=== PATIENT | female | born 1950 | race Caucasian/White ===

== ENCOUNTER 2017-04-30 17:00 | Inpatient (IN) | payer OTHER, BC ==
--- NOTE | 2017-04-30 17:26 | PDOC ---
History of Present Illness - General History Source: Patient Exam Limitations: No Limitations - History of Present Illness Initial Comments: 04/30/17 18:02 The patient is a year old female, with a significant past medical history of Afib, anxiety, HTN, thyroid disease, depression, breast cancer, and kidney cancer, who presents to the emergency department with, one month of shortness of breath, and a cough. As per patient she developed a cough a month ago and began to have significant shortness of breath. She reports seeing her PCP Dr. Curtis this morning when she had mild pressure to her chest which is chronic in nature since her first Afib attack. The patient reports her PCP advised her to come to the ED because she was tachycardic for further evaluation. She denies recent fevers, chills, headache or dizziness. She denies recent nausea, vomit, diarrhea or constipation. She denies recent dysuria, frequency, urgency or hematuria. Past surgical history: None reported. Social history: Nonsmoker. Denies EtOH use and recreational drug use. Primary Care Physician: Dr. Curtis <Remy Gonzalez - Last Filed: 04/30/17 18:38> <Flori Obrien - Last Filed: 04/30/17 18:54> <Gill Varela - Last Filed: 05/01/17 04:30> - General Chief Complaint: Irregular Heart Beat Stated Complaint: ATRIAL FIBRILLATION Time Seen by Provider: 04/30/17 17:10 Past History <Remy Gonzalez - Last Filed: 04/30/17 18:38> - Past Medical History Anemia: No Asthma: No Cancer: No Cardiac Disorders: No CVA: No COPD: No CHF: No Dementia: No Diabetes: No GI Disorders: No Disorders: No HTN: Yes Hypercholesterolemia: No Liver Disease: No Seizures: No Thyroid Disease: No - Surgical History Abdominal Surgery: Yes (LAP. BAND 2002) Appendectomy: No Cardiac Surgery: No Cholecystectomy: No Lung Surgery: No Neurologic Surgery: Yes (ANTERIOR CERVICAL DISCCECTOMY) Orthopedic Surgery: Yes (ANTERIOR CERVICAL DISCECTOMY 2000) - Immunization History Immunization Up to Date: No - Suicide/Smoking/Psychosocial Hx Smoking Status: No Smoking History: Former smoker Have you smoked in the past 12 months: No Number of Cigarettes Smoked Daily: 20 If you are a former smoker, when did you quit?: 1990 'Breaking Loose' booklet given: 06/06/15 Hx Alcohol Use: No Drug/Substance Use Hx: No Substance Use Type: None Hx Substance Use Treatment: No <Flori Obrien - Last Filed: 04/30/17 18:54> <Gill Varela Kin - Last Filed: 05/01/17 04:30> - Past Medical History Allergies/Adverse Reactions: Allergies Allergy/AdvReac Type Severity Reaction Status Date / Time prochlorperazine edisylate AdvReac Verified 06/05/15 18:21 [From Compazine] prochlorperazine maleate AdvReac Verified 06/05/15 18:21 [From Compazine] Home Medications: Ambulatory Orders Zolpidem Tartrate [Ambien] 10 mg PO HS 05/09/12 Cholecalciferol (Vitamin D3) [Vitamin D3] 4,000 unit PO DAILY capsule 05/06/13 Metoprolol Succinate 50 mg PO AM 01/11/16 Apixaban [Eliquis] 5 mg PO BID 04/30/17 Duloxetine HCl [Cymbalta] 30 mg PO DAILY 04/30/17 Escitalopram Oxalate [Lexapro -] 10 mg PO DAILY 04/30/17 Letrozole [Femara] 2.5 mg PO DAILY 04/30/17 Review of Systems - Review of Systems Able to Perform ROS?: Yes Comments:: 04/30/17 18:02 GENERAL/CONSTITUTIONAL: No fever or chills. No weakness. HEAD, EYES, EARS, NOSE AND THROAT: No change in vision. No ear pain or discharge. No sore throat. CARDIOVASCULAR: +SOB. +Tachycardia. +Chest pressure (chronic). RESPIRATORY: +Cough. No wheezing, or hemoptysis. GASTROINTESTINAL: No nausea, vomiting, diarrhea or constipation. GENITOURINARY: No dysuria, frequency, or change in urination. MUSCULOSKELETAL: No joint or muscle swelling or pain. No neck or back pain. SKIN: No rash NEUROLOGIC: No headache, vertigo, loss of consciousness, or change in strength/ sensation. ENDOCRINE: No increased thirst. No abnormal weight change. HEMATOLOGIC/LYMPHATIC: No anemia, easy bleeding, or history of blood clots. ALLERGIC/IMMUNOLOGIC: No hives or skin allergy. All Other Systems: Reviewed and Negative <Remy Gonzalez - Last Filed: 04/30/17 18:38> *Physical Exam - Vital Signs Last Vital Signs Temp Pulse Resp BP Pulse Ox 97.9 F 133 H 18 95/76 97 04/30/17 17:06 04/30/17 17:50 04/30/17 17:50 04/30/17 17:50 04/30/17 17:50 - Physical Exam Comments: 04/30/17 18:38 GENERAL: Awake, alert, and fully oriented, in no acute distress HEAD: No signs of trauma EYES: PERRLA, EOMI, sclera anicteric, conjunctiva clear ENT: Auricles normal inspection, hearing grossly normal, nares patent, oropharynx clear without exudates. Moist mucosa NECK: Normal ROM, supple, no lymphadenopathy, JVD, or masses LUNGS: Breath sounds equal, clear to auscultation bilaterally. No wheezes, and no crackles HEART: +Tachycardia. Regular rhythm, normal S1 and S2, no murmurs, rubs or gallops ABDOMEN: Soft, nontender, normoactive bowel sounds. No guarding, no rebound. No masses EXTREMITIES: Normal range of motion, no edema. No clubbing or cyanosis. No cords, erythema, or tenderness NEUROLOGICAL: Cranial nerves II through XII grossly intact. Normal speech, normal gait SKIN: Warm, Dry, normal turgor, no rashes or lesions noted. <Remy Gonzalez - Last Filed: 04/30/17 18:38> - Vital Signs Last Vital Signs Temp Pulse Resp BP Pulse Ox 97.9 F 70 15 106/67 95 04/30/17 17:06 05/01/17 00:01 04/30/17 21:15 05/01/17 00:01 05/01/17 00:01 <Gill Varela - Last Filed: 05/01/17 04:30> ED Treatment Course - LABORATORY CBC & Chemistry Diagram: 04/30/17 17:40 04/30/17 17:40 - Medications Given in the ED: ED Medications Discontinued Medications Generic Name Dose Route Start Last Admin Trade Name Freq PRN Reason Stop Dose Admin Metoprolol Tartrate 5 mg 04/30/17 17:27 04/30/17 17:45 Lopressor Injection - IVPUSH 03/26/18 17:28 5 mg ONCE ONE Administration <Remy Gonzalez - Last Filed: 04/30/17 18:38> - LABORATORY CBC & Chemistry Diagram: 04/30/17 17:40 04/30/17 17:40 <Flori Obrien - Last Filed: 04/30/17 18:54> - LABORATORY CBC & Chemistry Diagram: 04/30/17 17:40 04/30/17 17:40 - ADDITIONAL ORDERS Additional order review: Laboratory Results 04/30/17 04/30/17 17:40 17:40 Sodium 134 L Potassium 4.4 Chloride 99 Carbon Dioxide 28 Anion Gap 7 L BUN 20 H Creatinine 1.1 D Creat Clearance w eGFR 49.54 Random Glucose 100 Calcium 8.8 Total Bilirubin 0.7 D AST 16 ALT 13 Alkaline Phosphatase 84 Creatine Kinase 65 Troponin I < 0.03 Total Protein 6.7 Albumin 3.9 04/30/17 17:40 RBC 4.44 MCV 85.1 MCHC 33.3 RDW 13.3 MPV 10.4 Neutrophils % 67.4 Lymphocytes % 19.7 Monocytes % 7.8 Eosinophils % 4.4 Basophils % 0.7 - Medications Given in the ED: ED Medications Discontinued Medications Generic Name Dose Route Start Last Admin Trade Name Freq PRN Reason Stop Dose Admin Diltiazem HCl 10 mg 04/30/17 20:58 04/30/17 21:35 Cardizem Injection - IVPUSH 04/30/17 20:59 10 mg ONCE ONE Administration Metoprolol Tartrate 5 mg 04/30/17 17:27 04/30/17 17:45 Lopressor Injection - IVPUSH 04/30/17 17:28 5 mg ONCE ONE Administration Sodium Chloride 1,000 ml 04/30/17 19:07 04/30/17 19:00 Normal Saline - IV 04/30/17 19:08 1,000 ml ONCE ONE Administration <Gill Varela - Last Filed: 05/01/17 04:30> Medical Decision Making - Medical Decision Making 04/30/17 18:54 Pt presents to the ED complaining of <Flori Obrien - Last Filed: 04/30/17 18:54> *DC/Admit/Observation/Transfer - Attestations Scribe Attestion: 04/30/17 18:02 Documentation prepared by Remy Gonzalez, acting as medical transcription radiology for Flori Obrien MD. <Remy Gonzalez - Last Filed: 04/30/17 18:38> <Flori Obrien - Last Filed: 04/30/17 18:54> <Gill Varela - Last Filed: 05/01/17 04:30> Diagnosis at time of Disposition: Atrial fibrillation with RVR - Discharge Dispostion Condition at time of disposition: Stable
[2017-04-30] MEDS ORDERED: METOPROLOL TARTRATE 5 MG/5 ML VIAL IVPUSH ONE (17:27)
[2017-04-30] MEDS ORDERED: METOPROLOL TARTRATE 5 MG/5 ML VIAL ONE (17:41)
[2017-04-30 18:07] LABS: BASO % 0.7 % (0-2.0); EOS % 4.4 % (0-4.5); HEMATOCRIT 37.8 % (32.4-45.2); HEMOGLOBIN 12.6 GM/dl (10.7-15.3); LYMPH % 19.7 % (8-40); MCH 28.4 pg (25.7-33.7); MCHC 33.3 g/dl (32.0-36.0); MEAN CELL VOLUME 85.1 fl (80-96); MEAN PLT VOLUME 10.4 fl (7.5-11.1); MONO % 7.8 % (3.8-10.2); NEUT % 67.4 % (42.8-82.8); PLATELET COUNT 162 K/MM3 (134-434); RBC 4.44 M/mm3 (3.60-5.2); RDW 13.3 % (11.6-15.6); WHITE BLOOD COUNT 7.3 K/mm3 (4.0-10.8)
[2017-04-30 18:13] LABS: ALBUMIN 3.9 g/dl (3.5-5.0); ALK PHOS 84 U/L (32-92); ANION GAP 7 (8-16); BILIRUBIN,TOTAL 0.7 mg/dl (0.2-1.0); BLOOD UREA NITROGEN 20 mg/dl (7-18); CALCIUM 8.8 mg/dl (8.4-10.2); CHLORIDE 99 mmol/L (98-107); CO2 28 mmol/L (22-28); CREATININE 1.1 mg/dl (0.6-1.3); GLUCOSE,RANDOM 100 mg/dl (74-106); POTASSIUM 4.4 mmol/L (3.5-5.1); SGOT/AST 16 U/L (10-42); SGPT/ALT 13 U/L (10-40); SODIUM 134 mmol/L (136-145); TOT PROT 6.7 g/dl (6.4-8.3)
[2017-04-30] MEDS ORDERED: SODIUM CHLORIDE 0.9% 500 ML INFUS.BAG IV ONE (19:07)
[2017-04-30] MEDS ORDERED: dilTIAZem HCL 50 MG/10 ML - 10 ML VIAL IVPUSH ONE (20:58)
--- NOTE | 2017-04-30 20:58 | PDOC ---
*Physical Exam - Vital Signs Last Vital Signs Temp Pulse Resp BP Pulse Ox 97.9 F 121 H 16 99/80 100 04/30/17 17:06 04/30/17 19:56 04/30/17 19:56 04/30/17 19:56 04/30/17 19:56 ED Treatment Course - LABORATORY CBC & Chemistry Diagram: 04/30/17 17:40 04/30/17 17:40 - ADDITIONAL ORDERS Additional order review: Laboratory Results 04/30/17 04/30/17 17:40 17:40 Sodium 134 L Potassium 4.4 Chloride 99 Carbon Dioxide 28 Anion Gap 7 L BUN 20 H Creatinine 1.1 D Creat Clearance w eGFR 49.54 Random Glucose 100 Calcium 8.8 Total Bilirubin 0.7 D AST 16 ALT 13 Alkaline Phosphatase 84 Creatine Kinase 65 Troponin I < 0.03 Total Protein 6.7 Albumin 3.9 04/30/17 17:40 RBC 4.44 MCV 85.1 MCHC 33.3 RDW 13.3 MPV 10.4 Neutrophils % 67.4 Lymphocytes % 19.7 Monocytes % 7.8 Eosinophils % 4.4 Basophils % 0.7 - Medications Given in the ED: ED Medications Discontinued Medications Generic Name Dose Route Start Last Admin Trade Name Freq PRN Reason Stop Dose Admin Metoprolol Tartrate 5 mg 04/30/17 17:27 04/30/17 17:45 Lopressor Injection - IVPUSH 04/30/17 17:28 5 mg ONCE ONE Administration Sodium Chloride 1,000 ml 04/30/17 19:07 04/30/17 19:00 Normal Saline - IV 04/30/17 19:08 1,000 ml ONCE ONE Administration Progress Note - Progress Note Progress Note: Care of this patient received from Patient received 1 dose of IV metoprolol 5 mg which caused brief episode of hypotension but had no significant effect on heart rate. Diltiazem 10 mg IV given at approximately 9:45 PM Medical Decision Making - Medical Decision Making 04/30/17 23:40 Approximately 2 hours after administration of 10 mg diltiazem IV, patient's heart rhythm is persistent atrial fibrillation with heart rate in the 115 to 125 range. Additional dose of 10 mg diltiazem will be given now. Patient has no additional chest pain/pressure, shortness of breath or other new symptoms 05/01/17 00:[address] Nolasco; patient will be admitted to telemetry, [facility] . No further doses of diltiazem IV will be given now. Patient will receive diltiazem PO as needed 05/01/17 00:19 Patient's dose of Eliquis 5 mg to be given now along with diltiazem 30 mg by mouth. *DC/Admit/Observation/Transfer Diagnosis at time of Disposition: Atrial fibrillation with RVR - Discharge Dispostion Condition at time of disposition: Stable Admit: Yes - Referrals Referrals: Humphrey Curtis MD [Primary Care Provider] - - Patient Instructions - Post Discharge Activity
[2017-04-30] MEDS ORDERED: dilTIAZem HCL 50 MG/10 ML - 10 ML VIAL ONE (21:35)
[2017-05-01] MEDS ORDERED: dilTIAZem HCL 30 MG TABLET (FP) PO ONE (00:14)
[2017-05-01] MEDS ORDERED: dilTIAZem HCL 30 MG TABLET (FP) ONE (00:16)
[2017-05-01] MEDS ORDERED: APIXABAN 5 MG TABLET PO ONE (00:30)
[2017-05-01 02:07] VITALS: BMI 34.9
[2017-05-01] MEDS: LEVOTHYROXINE NA 125 MCG TABLET (FP) PO SCH (06:36)
--- NOTE | 2017-05-01 07:59 | HP ---
CHIEF COMPLAINT: shortness of breath and chest pressure PCP: Dr Curtis oncologist: Dr Castillo HISTORY OF PRESENT ILLNESS: Patient is a 67 y/o female with a past medical history of breast cancer (remission), afib, hypertension, and hypothyroidism. patient reports one month of shortness of breath and bilateral lower extremity swelling. In addition, she reports non-radiating chest pressure within the past 24 hours that worsens upon exertion. She sought evaluation with her primary care physician, Dr Curtis and was found to be in afib with rvr. As a result, she was referred to the emergency department for further evaluation. ER course was notable for: (1) ekg afib with rvr (2) troponin 0.03 (3) chest xray no acute pathology Recent Travel: none PAST MEDICAL HISTORY: see hpi PAST SURGICAL HISTORY: lap band, anterior cervical disectomy Social History: retired, resides at home with partner Smoking: none Alcohol: none Drugs: none Family History: non- contributory to this admission Allergies prochlorperazine edisylate [From Compazine] Adverse Reaction (Verified 06/05/15 18:21) DYSTONIC REACTION prochlorperazine maleate [From Compazine] Adverse Reaction (Verified 06/05/15 18 :21) DYSTONIC REACTION HOME MEDICATIONS: Home Medications Medication Instructions Recorded Zolpidem Tartrate [Ambien] 10 mg PO HS 05/09/12 Cholecalciferol (Vitamin D3) 4,000 unit PO DAILY capsule 05/06/13 [Vitamin D3] Metoprolol Succinate 50 mg PO AM 01/11/16 Apixaban [Eliquis] 5 mg PO BID 04/30/17 Duloxetine HCl [Cymbalta] 30 mg PO DAILY 04/30/17 Escitalopram Oxalate [Lexapro -] 10 mg PO DAILY 04/30/17 Letrozole [Femara] 2.5 mg PO DAILY 04/30/17 REVIEW OF SYSTEMS CONSTITUTIONAL: present: generalized weakness, malaise Absent: fever, chills, diaphoresis, loss of appetite, weight change HEENT: Absent: rhinorrhea, nasal congestion, throat pain, throat swelling, difficulty swallowing, mouth swelling, ear pain, eye pain, visual changes CARDIOVASCULAR: present: chest pain, peripheral edema Absent: syncope, palpitations, irregular heart rate, lightheadedness RESPIRATORY: Absent: cough, shortness of breath, dyspnea with exertion, orthopnea, wheezing, stridor, hemoptysis GASTROINTESTINAL: Absent: abdominal pain, abdominal distension, nausea, vomiting, diarrhea, constipation, melena, hematochezia GENITOURINARY: Absent: dysuria, frequency, urgency, hesitancy, hematuria, flank pain, genital pain MUSCULOSKELETAL: Absent: myalgia, arthralgia, joint swelling, back pain, neck pain SKIN: Absent: rash, itching, pallor HEMATOLOGIC/IMMUNOLOGIC: Absent: easy bleeding, easy bruising, lymphadenopathy, frequent infections ENDOCRINE: Absent: unexplained weight gain, unexplained weight loss, heat intolerance, cold intolerance NEUROLOGIC: Absent: headache, focal weakness or paresthesias, dizziness, unsteady gait, seizure, mental status changes, bladder or bowel incontinence PSYCHIATRIC: Absent: anxiety, depression, suicidal or homicidal ideation, hallucinations. PHYSICAL EXAMINATION Vital Signs - 24 hr 04/30/17 04/30/17 04/30/17 17:00 17:06 17:45 Temperature 97.9 F Pulse Rate 120 H Pulse Rate [ 124 H Apical] Respiratory 18 14 Rate Blood Pressure 110/66 98/72 Blood Pressure 94/82 [Right Arm] O2 Sat by Pulse 96 98 Oximetry (%) 04/30/17 04/30/17 04/30/17 17:50 19:56 20:30 Temperature Pulse Rate Pulse Rate [ 133 H 121 H 120 H Apical] Respiratory 18 16 16 Rate Blood Pressure Blood Pressure 95/76 99/80 114/78 [Right Arm] O2 Sat by Pulse 97 100 96 Oximetry (%) 04/30/17 05/01/17 05/01/17 21:15 00:01 00:04 Temperature Pulse Rate 72 Pulse Rate [ 128 H 70 Apical] Respiratory 15 20 Rate Blood Pressure Blood Pressure 109/85 106/67 [Right Arm] O2 Sat by Pulse 97 95 Oximetry (%) 05/01/17 05/01/17 05/01/17 00:36 00:43 01:00 Temperature 97.6 F Pulse Rate 132 H Pulse Rate [ 114 H Apical] Respiratory 18 20 20 Rate Blood Pressure 109/72 Blood Pressure 100/71 [Right Arm] O2 Sat by Pulse 98 98 Oximetry (%) 05/01/17 05:00 Temperature 97.8 F Pulse Rate 99 H Pulse Rate [ Apical] Respiratory 20 Rate Blood Pressure 91/54 Blood Pressure [Right Arm] O2 Sat by Pulse 95 Oximetry (%) GENERAL: Awake, alert, and fully oriented, in no acute distress. HEAD: Normal with no signs of trauma. EYES: Pupils equal, round and reactive to light, extraocular movements intact, sclera anicteric, conjunctiva clear. No lid lag. EARS, NOSE, THROAT: Ears normal, nares patent, oropharynx clear without exudates. Moist mucous membranes. NECK: Normal range of motion, supple without lymphadenopathy, + JVD, or masses. LUNGS: Breath sounds equal, clear to auscultation bilaterally to apexes, bilateral rales to bases, RR 24, No wheezes and No accessory muscle use. HEART: Regular rate and rhythm, normal S1 and S2 without murmur, rub or gallop. ABDOMEN: Soft, nontender, not distended, normoactive bowel sounds, no guarding, no rebound, no masses. No hepatomegaly or splenomegaly. MUSCULOSKELETAL: Normal range of motion at all joints. No bony deformities or tenderness. No CVA tenderness. UPPER EXTREMITIES: 2+ pulses, warm, well-perfused. No cyanosis. No clubbing. + 1 lower extremity edema bilaterally. LOWER EXTREMITIES: 2+ pulses, warm, well-perfused. No calf tenderness. No peripheral edema. NEUROLOGICAL: Cranial nerves II-XII intact. Normal speech. Normal gait. PSYCHIATRIC: Cooperative. Good eye contact. Appropriate mood and affect. SKIN: Warm, dry, normal turgor, no rashes or lesions noted, normal capillary refill. Laboratory Results - last 24 hr 04/30/17 04/30/17 04/30/17 17:40 17:40 17:40 WBC 7.3 RBC 4.44 Hgb 12.6 Hct 37.8 MCV 85.1 MCH 28.4 MCHC 33.3 RDW 13.3 Plt Count 162 MPV 10.4 Neutrophils % 67.4 Lymphocytes % 19.7 Monocytes % 7.8 Eosinophils % 4.4 Basophils % 0.7 Sodium 134 L Potassium 4.4 Chloride 99 Carbon Dioxide 28 Anion Gap 7 L BUN 20 H Creatinine 1.1 D Creat Clearance w eGFR 49.54 Random Glucose 100 Calcium 8.8 Total Bilirubin 0.7 D AST 16 ALT 13 Alkaline Phosphatase 84 Creatine Kinase 65 Troponin I < 0.03 Total Protein 6.7 Albumin 3.9 TSH 05/01/17 00:30 WBC RBC Hgb Hct MCV MCH MCHC RDW Plt Count MPV Neutrophils % Lymphocytes % Monocytes % Eosinophils % Basophils % Sodium Potassium Chloride Carbon Dioxide Anion Gap BUN Creatinine Creat Clearance w eGFR Random Glucose Calcium Total Bilirubin AST ALT Alkaline Phosphatase Creatine Kinase 57 Troponin I < 0.02 Total Protein Albumin TSH 0.38 ASSESSMENT/PLAN: 1) cardiovascular afib w/rvr - ventricular rate 130-140's on cardiac monitoring, fluid overload noted on exam , lopressor 5mg IV x 1 and lasix 40mg IV x 1, rate remains elevated, cardizem 5mg iv q4h prn, start cardizem 30mg q6h - stat echo ordered - continue eliquis - appreciate cardiology input (Dr Hood) acute congestive heart failure - pending bnp, lasix 40mg iv x1, strict i/o and daily weight hypertension - b/p at goal, continue loosartan with strict b/p monitoring 2) endo hypothyroidism - tsh 0.38, continue home dose levothyroxine 3) heme/onc breast/renal CA - continue femara - outpatient follow up (Dr Castillo) f/e/n -low sodium diet - replete electrolytes ppx - eliquis - scd - oob dispo: pt requires inpatient telemetry admission Visit type - Emergency Visit Emergency Visit: Yes ED Registration Date: 05/01/17 Care time: The patient presented to the Emergency Department on the above date and was hospitalized for further evaluation of their emergent condition. - New Patient This patient is new to me today: Yes Date on this admission: 05/01/17 - Critical Care Critical Care patient: Yes Total Critical Care Time (in minutes): 45 Critical Care Statement: The care of this patient involved high complexity decision making to prevent further life threatening deterioration of the patient 's condition and/or to evaluate & treat vital organ system(s) failure or risk of failure. Hospitalist Screening - Colonoscopy Questionnaire Colonoscopy Questionnaire: Colonoscopy Questionnaire - Patient: 50 - 75 years old and never had a screening colonoscopy: No History of colon or rectal polyps, or CA: No History of IBD, Crohn's disease or UC: No History of abdominal radiation therapy as a child: No - Relative: 1 with colon or rectal CA, or polyps at age 60 or younger: No Colon or rectal CA diagnosed at age 45 or younger: No Multiple relatives with colon or rectal CA: No - Outcome: Screening Result: Negative Screen
[2017-05-01] MEDS ORDERED: METOPROLOL TARTRATE 5 MG/5 ML VIAL IVPUSH ONE (08:07)
[2017-05-01] MEDS ORDERED: FUROSEMIDE 40 MG/4 ML INJECTABLE VIAL IVPUSH ONE (08:30)
[2017-05-01 09:02] LABS: BASO % 0.8 % (0-2.0); EOS % 4.4 % (0-4.5); HEMATOCRIT 35.7 % (32.4-45.2); HEMOGLOBIN 11.9 GM/dl (10.7-15.3); LYMPH % 22.7 % (8-40); MCH 28.6 pg (25.7-33.7); MCHC 33.4 g/dl (32.0-36.0); MEAN CELL VOLUME 85.8 fl (80-96); MEAN PLT VOLUME 10.8 fl (7.5-11.1); MONO % 8.4 % (3.8-10.2); NEUT % 63.7 % (42.8-82.8); PLATELET COUNT 167 K/MM3 (134-434); RBC 4.16 M/mm3 (3.60-5.2); RDW 13.4 % (11.6-15.6); WHITE BLOOD COUNT 6.2 K/mm3 (4.0-10.8)
[2017-05-01 09:05] LABS: ANION GAP 3 (8-16); BLOOD UREA NITROGEN 22 mg/dl (7-18); CALCIUM 7.8 mg/dl (8.4-10.2); CHLORIDE 103 mmol/L (98-107); CO2 28 mmol/L (22-28); GLUCOSE,RANDOM 91 mg/dl (74-106); MAGNESIUM 1.8 mg/dL (1.8-2.4); PHOSPHOROUS 4.2 mg/dl (2.5-4.6); POTASSIUM 4.2 mmol/L (3.5-5.1); SODIUM 134 mmol/L (136-145)
[2017-05-01] MEDS ORDERED: MAGNESIUM SULF 50% (8.12 MEQ/2 ML-1 GM VIAL) IVPB ONE (09:50)
[2017-05-01] MEDS ORDERED: PATIENT'S OWN MEDICATION (NON-FORMULARY) (Irbesartan/Hydrochlorothiazide [Avalide 300-12.5 PO SCH (10:00)
[2017-05-01] MEDS ORDERED: LOSARTAN POTASSIUM 50 MG TABLET (FP) PO SCH (10:00)
[2017-05-01] MEDS ORDERED: HYDROCHLOROTHIAZIDE 12.5 MG CAPSULE (FP) PO SCH (10:00)
[2017-05-01] MEDS ORDERED: MAGNESIUM SULFATE 1 GM in SODIUM CHLORIDE 100 ML IVPB ONE (10:15)
--- NOTE | 2017-05-01 11:03 | CON.CARD ---
Cardiology Consult (text) - Consultation Consultation Note: CC: afib with rvr 67 yo with h/o afib on eliquis, HTN, Thyroid Disease, Breast Ca (Chemo-Neulasta completed 06/02, xrt), Anxiety, Cervical Spine Fusion, lap band surgery with chronic nausea/vomiting, MONTEZ off cpap who p/w afib with rvr. Patient states that after her last admission for rvr in 2015, she was switched from diltiazem to toprol as an outpatient and has been on the same dose ever since. She did not follow up with cardiology as outpatient. Over the past year she has had intermittent episodes of chest heaviness associated with sob. For the past 3 weeks she has had constant symptoms. has chronic n/v since lap band surgery, states recently she may be having more episodes of vomiting than usual. + chronic joint pain, stable. Denies recent infection/uri/gi illness, etc.. No recent infectious symptoms including f/c/s, diarrhea, abdominal discomfort. Denies poor po intake, h/a, cough, congestion, rash. Is exercising once a week with a physical laboratory assistant. exercise tolerance improving recently. No sx's of orthopnea, PND, LE edema, dizziness, bleeding, transient neurologic sx's. Thus far has received Cardizem 10 mg IV x 1, 30 po diltiazem, 5 IV lopressor x 2 , and toprol 50 mg po x 1. HR responded best to diltiazem but did cause a drop in sbp's. Similar effect on past admit when she was given diltiazem. received both 1L ns as well as lasix 40 mg iv x 1. hr remains uncontrolled in the 130's-140's Past Med Hx: Per HPI Past surg hx: Per hpi Family History: ASHD Social History:former smoker, no etoh or illicits Ros: Per HPI Ambulatory Orders Zolpidem Tartrate [Ambien] 10 mg PO HS 05/09/12 Cholecalciferol (Vitamin D3) [Vitamin D3] 4,000 unit PO DAILY capsule 05/06/13 Metoprolol Succinate 50 mg PO AM 01/11/16 Apixaban [Eliquis] 5 mg PO BID 04/30/17 Duloxetine HCl [Cymbalta] 30 mg PO DAILY 04/30/17 Escitalopram Oxalate [Lexapro -] 10 mg PO DAILY 04/30/17 Letrozole [Femara] 2.5 mg PO DAILY 04/30/17 Current Medications Apixaban (Eliquis -) 5 mg PO BID [facility] Cholecalciferol (Vitamin D3 -) 4,000 unit PO DAILY [facility] Duloxetine HCl (Cymbalta -) 30 mg PO DAILY [facility] Escitalopram Oxalate (Lexapro -) 10 mg PO DAILY [facility] Magnesium Sulfate 1 gm/ Sodium (Chloride) 102 mls @ 102 mls/hr IVPB ONCE ONE Stop: 05/01/17 11:14 Letrozole (Femara -) 2.5 mg PO DAILY [facility] Levothyroxine Sodium (Synthroid -) 125 mcg PO DAILY@0700 [facility] Last Admin: 05/01/17 06:36 Dose: 125 mcg Losartan Potassium (Cozaar -) 100 mg PO DAILY [facility] Metoprolol Succinate (Toprol Xl -) 50 mg PO DAILY [facility] Vital Signs - 24 hr 04/30/17 04/30/17 04/30/17 17:00 17:06 17:45 Temperature 97.9 F Pulse Rate 120 H Pulse Rate [ 124 H Apical] Respiratory 18 14 Rate Blood Pressure 110/66 98/72 Blood Pressure 94/82 [Right Arm] O2 Sat by Pulse 96 98 Oximetry (%) 04/30/17 04/30/17 04/30/17 17:50 19:56 20:30 Temperature Pulse Rate Pulse Rate [ 133 H 121 H 120 H Apical] Respiratory 18 16 16 Rate Blood Pressure Blood Pressure 95/76 99/80 114/78 [Right Arm] O2 Sat by Pulse 97 100 96 Oximetry (%) 04/30/17 05/01/17 05/01/17 21:15 00:01 00:04 Temperature Pulse Rate 72 Pulse Rate [ 128 H 70 Apical] Respiratory 15 20 Rate Blood Pressure Blood Pressure 109/85 106/67 [Right Arm] O2 Sat by Pulse 97 95 Oximetry (%) 05/01/17 05/01/17 05/01/17 00:36 00:43 01:00 Temperature 97.6 F Pulse Rate 132 H Pulse Rate [ 114 H Apical] Respiratory 18 20 20 Rate Blood Pressure 109/72 Blood Pressure 100/71 [Right Arm] O2 Sat by Pulse 98 98 Oximetry (%) 05/01/17 05/01/17 05/01/17 05:00 08:16 08:21 Temperature 97.8 F Pulse Rate 99 H 142 H 120 H Pulse Rate [ Apical] Respiratory 20 20 Rate Blood Pressure 91/54 93/75 110/72 Blood Pressure [Right Arm] O2 Sat by Pulse 95 Oximetry (%) 05/01/17 05/01/17 05/01/17 08:34 09:00 10:17 Temperature Pulse Rate 123 H 123 H Pulse Rate [ Apical] Respiratory 20 20 Rate Blood Pressure 108/35 111/77 Blood Pressure [Right Arm] O2 Sat by Pulse 100 Oximetry (%) Intake & Output 04/29/17 04/30/17 05/01/17 05/02/17 07:59 07:59 07:59 07:59 Intake Total 1250 Output Total 100 Balance 1250 -100 Weight 216 lb 3.2 oz nad, calm jvd flat, neck supple trace rales, nl effort irregularly irregular, tachycardic, nl s1, s2 no mrg. PMI ND. + bs soft nt nd, no hsm ext without e/c/c + dp/pt, no carotid bruits aaox3 no jaundice, diaphoresis CBC, BMP 05/01/17 07:25 05/01/17 07:25 Laboratory Tests 04/30/17 04/30/17 05/01/17 17:40 17:40 00:30 Magnesium Creatine Kinase 65 57 Troponin I < 0.03 < 0.02 Albumin 3.9 TSH 0.38 05/01/17 05/01/17 07:25 07:25 Magnesium 1.8 Creatine Kinase Troponin I < 0.03 Albumin TSH EKG 04/30: afib with RVR, 140 bpm. low voltages. no acute ischemic changes Tele: Afib with rvr 130's-140's. cxr: no acute infiltrates or congestion. + bibasilar atelectasis. echo 04/2017: nl lv/rv size/fn. mod lae, 1+ laith. 1+ mac. mild-mod mr. 1+ tr. 67 yo with h/o afib on eliquis, HTN, Thyroid Disease, Breast Ca (Chemo-Neulasta completed 06/02, xrt), Anxiety, Cervical Spine Fusion, lap band surgery with chronic nausea/vomiting, MONTEZ off cpap who p/w afib with rvr. Atrial fibrillation - no clear trigger. appears euvolemic. does not require further diuresis at this time. ce's neg x 3. ekg without acute ischemic changes. echo without significant abnormalities. no clear signs of infection. tsh wnl. - diltiazem has controlled her afib well in the past and also seemed to have more effect on her heart rate in the past 24 hours than lopressor. Will start diltiazem 30 mg po q6h. diltiazem 5 mg IV prn. diltiazem has caused drops in her sbp in the past, will monitor bp closely. hold cozaar to make bp room for uptitration of rate control meds. -con't ac with eliquis - lyte repletion prn - tele monitoring. HTN - meds as above. montez - per pmd. hyponatremia - con't to monitor. - daily weight, i/o's. ongoing reassessment of volume status.
[2017-05-01] MEDS ORDERED: dilTIAZem HCL 50 MG/10 ML - 10 ML VIAL IVPUSH PRN (11:05)
[2017-05-01] MEDS: DULoxetine HCL 30 MG CAPSULE.DR (FP) PO SCH (11:23)
[2017-05-01] MEDS: ESCITALOPRAM OXALATE 10 MG TABLET (FP) PO SCH (11:23)
[2017-05-01] MEDS: APIXABAN 5 MG TABLET PO SCH ×2 (11:24→22:07)
[2017-05-01] MEDS: LETROZOLE 2.5 MG TABLET (FP) PO SCH (11:24)
[2017-05-01] MEDS: CHOLECALCIFEROL (VITAMIN D3) 1,000 UNIT TABLET (FP) PO SCH (11:25)
[2017-05-01] MEDS: dilTIAZem HCL 30 MG TABLET (FP) PO SCH ×3 (11:27→17:43)
[2017-05-01] MEDS ORDERED: MAGNESIUM OXIDE 400 MG TABLET (FP) PO ONE (11:30)
--- NOTE | 2017-05-01 14:54 | CON.PULM ---
Consult Consult Specialty:: PULMONARY Referred by:: HEATHER Niño Reason for Consultation:: shortness of breath - History of Present Illness Chief Complaint: chest discomfort History of Present Illness: 67yo female with h/o HTN, atrial fibrillation, depression, breast and renal cancer who was sent by her PMD after being found in rapid afib. She reports shortness of breath especially with exertion, chest discomfort described as pressure like and occasional palpitations. She also reports increase in her leg swelling and orthopnea. When she was first diagnosed in 2016, presentation was much different, recalls it being much more "violent." Reports compliance with her medications. No fevers, chills or sweats. No recent illnesses or recent travel. She is a former smoker. 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 History of Recent Travel: No Home Medications - Allergies Allergies/Adverse Reactions: Allergies Allergy/AdvReac Type Severity Reaction Status Date / Time prochlorperazine edisylate AdvReac Verified 06/05/15 18:21 [From Compazine] prochlorperazine maleate AdvReac Verified 06/05/15 18:21 [From Compazine] - Home Medications Home Medications: Ambulatory Orders Zolpidem Tartrate [Ambien] 10 mg PO HS 05/09/12 Cholecalciferol (Vitamin D3) [Vitamin D3] 4,000 unit PO DAILY capsule 05/06/13 Metoprolol Succinate 50 mg PO AM 01/11/16 Apixaban [Eliquis] 5 mg PO BID 04/30/17 Duloxetine HCl [Cymbalta] 30 mg PO DAILY 04/30/17 Escitalopram Oxalate [Lexapro -] 10 mg PO DAILY 04/30/17 Letrozole [Femara] 2.5 mg PO DAILY 04/30/17 Family Disease History - Family Disease History Family Disease History: CA: Father, Mother, Brother, Sister Review of Systems - Review of Systems Constitutional: reports: Weakness. denies: Chills, Fever Eyes: denies: Recent Change in Vision HENT: denies: Nasal Congestion, Throat Pain Neck: denies: Stiffness, Tenderness Cardiovascular: reports: Chest Pain, Edema, Palpitations, Shortness of Breath Respiratory: reports: SOB on Exertion. denies: Cough, Hemoptysis, Wheezing Gastrointestinal: denies: Abdominal Pain, Nausea, Vomiting Genitourinary: denies: Dysuria, Hematuria Neurological: denies: Dizziness, Headache Endocrine: denies: Unexplained Weight Loss Physical Exam Vital Sings: Vital Signs Temperature 97.6 F 05/01/17 14:11 Pulse Rate 100 H 05/01/17 14:11 Respiratory Rate 18 05/01/17 14:11 Blood Pressure 84/57 05/01/17 14:11 O2 Sat by Pulse Oximetry (%) 98 05/01/17 14:11 Constitutional: Yes: Calm Eyes: Yes: Conjunctiva Clear, EOM Intact HENT: Yes: Atraumatic, Normocephalic Neck: Yes: Supple, Trachea Midline Cardiovascular: Yes: Tachycardia, Pulse Irregular Respiratory: Yes: Diminished (decreased breath sounds at the bases) ...Clubbing: No Gastrointestinal: Yes: Normal Bowel Sounds, Soft. No: Tenderness Edema: No Labs: CBC, BMP 05/01/17 07:25 05/01/17 07:25 Imaging - Results Chest X-ray: Report Reviewed, Image Reviewed (no infiltrates) Problem List - Problems (1) Atrial fibrillation with RVR Code(s): I48.91 - UNSPECIFIED ATRIAL FIBRILLATION (2) Acute diastolic (congestive) heart failure Code(s): I50.31 - ACUTE DIASTOLIC (CONGESTIVE) HEART FAILURE (3) HTN (hypertension) Code(s): I10 - ESSENTIAL (PRIMARY) HYPERTENSION (4) Hyponatremia Code(s): E87.1 - HYPO-OSMOLALITY AND HYPONATREMIA Assessment/Plan Atrial Fibrillation with RVR Acute Diastolic Heart Failure HTN h/o Breast/Kidney Cancer Depression - titrate rate control - continue anticoagulation with eliquis - echocardiogram - lasix given with good diuresis, appears euvolemic at this time - O2 as needed to keep SpO2 >90% - cardiology f/u Thank you for this consult Carlos Arora MD
--- NOTE | 2017-05-01 16:42 | EKG ---
Test Reason : Blood Pressure : / mmHG Vent. Rate : 140 BPM Atrial Rate : 288 BPM P-R Int : 000 ms QRS Dur : 070 ms QT Int : 316 ms P-R-T Axes : 000 000 028 degrees QTc Int : 482 ms ATRIAL FIBRILLATION WITH RAPID VENTRICULAR RESPONSE LOW VOLTAGE QRS ABNORMAL ECG NO PREVIOUS ECGS AVAILABLE Confirmed by MD Ras, Yusuf ([id number]) on 05/01/2017 4:41:49 PM Referred By: LENORA Confirmed By:Yusuf Mcginnis MD
[2017-05-01] MEDS ORDERED: ZOLPIDEM TARTRATE 5 MG TABLET PO ONE (22:06)
[2017-05-02] MEDS: dilTIAZem HCL 30 MG TABLET (FP) PO SCH ×3 (00:05→12:38)
[2017-05-02] MEDS: LEVOTHYROXINE NA 125 MCG TABLET (FP) PO SCH (06:58)
[2017-05-02 09:15] LABS: ANION GAP 5 (8-16); BLOOD UREA NITROGEN 17 mg/dl (7-18); CALCIUM 7.9 mg/dl (8.4-10.2); CHLORIDE 102 mmol/L (98-107); CO2 28 mmol/L (22-28); CREATININE 0.8 mg/dl (0.6-1.3); GLUCOSE,RANDOM 99 mg/dl (74-106); MAGNESIUM 1.8 mg/dL (1.8-2.4); POTASSIUM 3.8 mmol/L (3.5-5.1); SODIUM 135 mmol/L (136-145)
[2017-05-02 09:18] LABS: INR 1.4 (0.82-1.09); PROTHROMBIN TIME (PATIENT) 15.6 SEC (10.2-13.0)
[2017-05-02] MEDS: CHOLECALCIFEROL (VITAMIN D3) 1,000 UNIT TABLET (FP) PO SCH (09:46)
[2017-05-02] MEDS: ESCITALOPRAM OXALATE 10 MG TABLET (FP) PO SCH (09:47)
[2017-05-02] MEDS: DULoxetine HCL 30 MG CAPSULE.DR (FP) PO SCH (09:48)
[2017-05-02] MEDS: LETROZOLE 2.5 MG TABLET (FP) PO SCH (09:48)
[2017-05-02] MEDS: APIXABAN 5 MG TABLET PO SCH ×2 (09:48→21:08)
--- NOTE | 2017-05-02 12:02 | PN ---
Physical Exam: SUBJECTIVE: Patient seen and examined, denies any chest pain does report some shortness of breath upon exertion, patient to be transferred to [address], patient declined transfer. OBJECTIVE: Patient is a 67 y/o female with a past medical history of breast cancer (remission), afib, hypertension, and hypothyroidism. Patient was admitted from the emergency department for afib w/rvr Vital Signs Period Temp Pulse Resp BP Sys/Molina Pulse Ox Last 24 Hr 97.6 F-98.6 F 73-120 18-19 84-110/55-77 97-100 GENERAL: The patient is awake, alert, and fully oriented, in no acute distress. HEAD: Normal with no signs of trauma. EYES: PERRL, extraocular movements intact, sclera anicteric, conjunctiva clear. No ptosis. ENT: Ears normal, nares patent, oropharynx clear without exudates, moist mucous membranes. NECK: Trachea midline, full range of motion, supple. LUNGS: Breath sounds equal, clear to auscultation bilaterally to apexes, slight rals noted bilateral bases, no wheezes, no accessory muscle use. HEART: irregular rate and rhythm, S1, S2 without murmur, rub or gallop. ABDOMEN: Soft, nontender, nondistended, normoactive bowel sounds, no guarding, no rebound, no hepatosplenomegaly, no masses. EXTREMITIES: 2+ pulses, warm, well-perfused, trace edema bilaterally. NEUROLOGICAL: Cranial nerves II through XII grossly intact. Normal speech, gait not observed. PSYCH: Normal mood, normal affect. SKIN: Warm, dry, normal turgor, no rashes or lesions noted Laboratory Results - last 24 hr 05/01/17 05/02/17 05/02/17 07:25 08:30 08:30 PT with INR 15.6 H INR 1.40 H Sodium 135 L Potassium 3.8 Chloride 102 Carbon Dioxide 28 Anion Gap 5 L BUN 17 D Creatinine 0.8 Random Glucose 99 Calcium 7.9 L Magnesium 1.8 Free T3 2.6 Laboratory Tests 05/01/17 07:25 B-Natriuretic Peptide 1271.00 H Active Medications Generic Name Dose Route Start Last Admin Trade Name Freq PRN Reason Stop Dose Admin Apixaban 5 mg 05/01/17 10:00 05/02/17 09:48 Eliquis - PO 5 mg BID DAYANA Administration Cholecalciferol 4,000 unit 05/01/17 10:00 05/02/17 09:46 Vitamin D3 - PO 4,000 unit DAILY DAYANA Administration Diltiazem HCl 30 mg 05/01/17 11:15 05/02/17 06:58 Cardizem - PO 30 mg Q6HPO DAYANA Administration Diltiazem HCl 5 mg 05/01/17 11:05 Cardizem Injection - IVPUSH Q4H PRN TACHYCARDIA Duloxetine HCl 30 mg 05/01/17 10:00 05/02/17 09:48 Cymbalta - PO 30 mg DAILY DAYANA Administration Escitalopram Oxalate 10 mg 05/01/17 10:00 05/02/17 09:47 Lexapro - PO 10 mg DAILY DAYANA Administration Letrozole 2.5 mg 05/01/17 10:00 05/02/17 09:48 Femara - PO 2.5 mg DAILY DAYANA Administration Levothyroxine Sodium 125 mcg 05/01/17 07:00 05/02/17 06:58 Synthroid - PO 125 mcg DAILY@0700 DAYANA Administration IMAGING Chest xray: no acute pathology echo: ef 60%, moderate MR ASSESSMENT/PLAN: 1) cardiovascular afib w/rvr - ventricular rate 80-110, continue cardizem 30mg q6h - continue eliquis - cardiology consulted and followed acute congestive heart failure - bnp elevated, 3kg weight loss, slight rales noted on exam, lasix 40mg iv x1 ordered - strict i/o and daily weight hypertension - b/p at goal,strict b/p monitoring 2) endo hypothyroidism - tsh 0.38, continue home dose levothyroxine 3) heme/onc breast/renal CA - continue femara - outpatient follow up (Dr Castillo) f/e/n -low sodium diet - replete electrolytes ppx - eliquis - scd - oob dispo: pt requires inpatient telemetry admission Visit type - Emergency Visit Emergency Visit: Yes ED Registration Date: 05/01/17 Care time: The patient presented to the Emergency Department on the above date and was hospitalized for further evaluation of their emergent condition. - New Patient This patient is new to me today: No - Critical Care Critical Care patient: No - Discharge Referral Referred to [facility] Med P.C.: No
[2017-05-02] MEDS ORDERED: MAGNESIUM SULF 50% (8.12 MEQ/2 ML-1 GM VIAL) IVPB ONE (12:03)
[2017-05-02] MEDS ORDERED: FUROSEMIDE 40 MG/4 ML INJECTABLE VIAL IVPUSH ONE (12:30)
[2017-05-02] MEDS ORDERED: POTASSIUM CHLORIDE TABS 20 MEQ TABLET.ER (FP) PO ONE (12:40)
[2017-05-02] MEDS ORDERED: MAGNESIUM 1GM/D5W - 1 GM/100 ML IVPB IVPB ONE (12:45)
--- NOTE | 2017-05-02 13:19 | PN ---
Progress Note (short form) - Note Progress Note: PULMONARY REMAINS WITH AF WITH RVR APPEARS STABLE ANICTERIC CLEAR NO RALES S1S2 IRREGULAR RVR BS+ SOFT 1+ B/L LOWER EXT EDEMA LABS/MEDS/TELE/IMAGES/ECHO REVIEWED Atrial Fibrillation with RVR Acute Diastolic Heart Failure HTN h/o Breast/Kidney Cancer Depression - titrate rate control - continue anticoagulation with eliquis - lasix given with good diuresis, appears euvolemic at this time - O2 as needed to keep SpO2 >90% - cardiology follow up Gricel ROBERTS MD
--- NOTE | 2017-05-02 15:05 | PN ---
Progress Note (short form) - Note Progress Note: CC: afib with rvr S: no recurrence of chest heaviness since yesterday. no sob, palps, dizziness. s/p lasix IV x 1 today. HR's increased this afternoon --> given diltiazem 5 mg iv x 1. Patient states at home sbp's run in the 100's. Typically has vomiting daily with food, no vomiting since admit. Current Medications Apixaban (Eliquis -) 5 mg PO BID [facility] Last Admin: 05/02/17 09:48 Dose: 5 mg Cholecalciferol (Vitamin D3 -) 4,000 unit PO DAILY [facility] Last Admin: 05/02/17 09:46 Dose: 4,000 unit Diltiazem HCl (Cardizem -) 30 mg PO Q6HPO [facility] Last Admin: 05/02/17 12:38 Dose: 30 mg Diltiazem HCl (Cardizem Injection -) 5 mg IVPUSH Q4H PRN PRN Reason: TACHYCARDIA Last Admin: 05/02/17 14:33 Dose: 5 mg Duloxetine HCl (Cymbalta -) 30 mg PO DAILY [facility] Last Admin: 05/02/17 09:48 Dose: 30 mg Escitalopram Oxalate (Lexapro -) 10 mg PO DAILY [facility] Last Admin: 05/02/17 09:47 Dose: 10 mg Letrozole (Femara -) 2.5 mg PO DAILY [facility] Last Admin: 05/02/17 09:48 Dose: 2.5 mg Levothyroxine Sodium (Synthroid -) 125 mcg PO DAILY@0700 [facility] Last Admin: 05/02/17 06:58 Dose: 125 mcg Vital Signs - 24 hr 05/01/17 05/01/17 05/01/17 16:16 21:00 22:00 Temperature 98.6 F Pulse Rate 83 73 Respiratory 18 18 18 Rate Blood Pressure 110/55 98/77 O2 Sat by Pulse 97 97 Oximetry (%) 05/02/17 05/02/17 05/02/17 06:00 08:30 09:44 Temperature 98.1 F Pulse Rate 106 H 87 Respiratory 19 18 Rate Blood Pressure 99/62 100/66 O2 Sat by Pulse 97 100 Oximetry (%) 05/02/17 05/02/17 05/02/17 14:08 14:33 14:35 Temperature 98.6 F Pulse Rate 75 133 H 94 H Respiratory 18 18 Rate Blood Pressure 132/68 103/74 O2 Sat by Pulse 98 Oximetry (%) 05/02/17 05/02/17 14:37 14:39 Temperature Pulse Rate 97 H 103 H Respiratory 18 18 Rate Blood Pressure 103/74 101/79 O2 Sat by Pulse Oximetry (%) Intake & Output 04/30/17 05/01/17 05/02/17 05/03/17 07:59 07:59 07:59 07:59 Intake Total 1250 1100 825 Output Total 1000 Balance 1250 100 825 Weight 216 lb 3.2 oz 210 lb 0.9 oz nad, calm jvd flat, neck supple trace rales, nl effort irregularly irregular, nl s1, s2 no mrg. PMI ND. + bs soft nt nd, no hsm ext without e/c/c + dp/pt, no carotid bruits aaox3 no jaundice, diaphoresis CBC, BMP 05/01/17 07:25 05/02/17 08:30 Laboratory Tests 05/02/17 08:30 Magnesium 1.8 EKG 04/30: afib with RVR, 140 bpm. low voltages. no acute ischemic changes Tele: Afib HR alternating between 100's and 120's. cxr: no acute infiltrates or congestion. + bibasilar atelectasis. echo 04/2017: nl lv/rv size/fn. mod lae, 1+ laith. 1+ mac. mild-mod mr. 1+ tr. ASSESSMENT/PLAN 67 yo with h/o afib on eliquis, HTN, Thyroid Disease, Breast Ca (Chemo-Neulasta completed 06/02, xrt), Anxiety, Cervical Spine Fusion, lap band surgery with chronic nausea/vomiting, MONTEZ off cpap who p/w afib with rvr. Atrial fibrillation - no clear trigger. appears euvolemic. does not require further diuresis at this time. ce's neg x 3. ekg without acute ischemic changes. echo without significant abnormalities. no clear signs of infection. tsh wnl. - diltiazem has controlled her afib well in the past and also seemed to have more effect on her heart rate in the past 24 hours than lopressor. Will start diltiazem 30 mg po q6h. diltiazem 5 mg IV prn. diltiazem has caused drops in her sbp in the past, will monitor bp closely. hold cozaar to make bp room for uptitration of rate control meds. - 05/02: required prn iv dilt today. Will increase po dilt regimen to 60 mg po q6h. -con't ac with eliquis - lyte repletion prn - tele monitoring. HTN - now runs on low end. meds as above. montez - per pmd. hyponatremia - con't to monitor. - daily weight, i/o's. ongoing reassessment of volume status.
[2017-05-02] MEDS ORDERED: dilTIAZem HCL 30 MG TABLET (FP) PO ONE (16:16)
[2017-05-02] MEDS: dilTIAZem HCL 60 MG TABLET (FP) PO SCH ×2 (18:22→23:03)
[2017-05-02] MEDS: ZOLPIDEM TARTRATE 5 MG TABLET PO PRN (23:03)
[2017-05-03] MEDS: dilTIAZem HCL 60 MG TABLET (FP) PO SCH ×2 (01:50→06:16)
[2017-05-03] MEDS: LEVOTHYROXINE NA 125 MCG TABLET (FP) PO SCH (06:16)
[2017-05-03 06:45] LABS: CALCIUM 7.2 mg/dL (8.5-10.1); CHLORIDE 105 mmol/L (98-107); POTASSIUM 3.7 mmol/L (3.5-5.1); SODIUM 139 mmol/L (136-145)
[2017-05-03 06:49] LABS: ANION GAP 6 (8-16); BLOOD UREA NITROGEN 22 mg/dL (7-18); CO2 28 mmol/L (21-32); CREATININE 1.1 mg/dL (0.55-1.02); GLUCOSE,RANDOM 111 mg/dL (74-106); MAGNESIUM 1.9 mg/dL (1.8-2.4)
--- NOTE | 2017-05-03 08:30 | PN ---
Physical Exam: SUBJECTIVE: Patient seen and examined sitting on edge of bed eating lunch. Feels well. Denies chest pain, palpitations, SOB, lightheadedness. OBJECTIVE: Vital Signs Period Temp Pulse Resp BP Sys/Molina Pulse Ox Last 24 Hr 98.1 F-98.8 F 75-133 18-20 97-132/52-79 98-100 Neuro: A&Ox3, in no distress CV: Irregular S1, S2 Lungs: CTA Abdomen: soft, not tender, not distended Ext: 2+ pulses, warm, well-perfused, no significant edema Skin: warm, dry, normal turgor Laboratory Results - last 24 hr 05/02/17 05/02/17 05/03/17 08:30 08:30 05:10 PT with INR 15.6 H INR 1.40 H Sodium 135 L 139 Potassium 3.8 3.7 Chloride 102 105 Carbon Dioxide 28 28 Anion Gap 5 L 6 L BUN 17 D 22 H Creatinine 0.8 1.1 H Random Glucose 99 111 H Calcium 7.9 L 7.2 L Magnesium 1.8 1.9 Current Medications Generic Name Dose Route Start Last Admin Trade Name Freq PRN Reason Stop Dose Admin Apixaban 5 mg 05/01/17 10:00 05/03/17 09:24 Eliquis - PO 5 mg BID DAYANA Administration Cholecalciferol 4,000 unit 05/01/17 10:00 05/03/17 09:24 Vitamin D3 - PO 4,000 unit DAILY DAYANA Administration Diltiazem HCl 5 mg 05/01/17 11:05 05/02/17 14:33 Cardizem Injection - IVPUSH 5 mg Q4H PRN Administration TACHYCARDIA Diltiazem HCl 240 mg 05/04/17 10:00 Cardizem Cd - PO DAILY DAYANA Duloxetine HCl 30 mg 05/01/17 10:00 05/03/17 09:24 Cymbalta - PO 30 mg DAILY DAYANA Administration Escitalopram Oxalate 10 mg 05/01/17 10:00 05/03/17 09:24 Lexapro - PO 10 mg DAILY DAYANA Administration Letrozole 2.5 mg 05/01/17 10:00 05/03/17 10:17 Femara - PO 2.5 mg DAILY DAYANA Administration Levothyroxine Sodium 125 mcg 05/01/17 07:00 05/03/17 06:16 Synthroid - PO 125 mcg DAILY@0700 DAYANA Administration Zolpidem Tartrate 5 mg 05/02/17 22:48 05/02/17 23:03 Ambien - PO 5 mg HS PRN Administration INSOMNIA EC/26: afib with RVR, 140 bpm. low voltages. no acute ischemic changes Echo 04/2017: nl lv/rv size/fn. mod lae, 1+ laith. 1+ mac. mild-mod mr. 1+ tr. ASSESSMENT/PLAN 67 year-old female with a PMH significant for HTN, atrial fibrillation on Eliquis, hypothyroidism, and breast cancer. Admitted for afib with RVR. Afib with RVR --rate to 140s on telemetry --switched today to long acting diltiazem 240mg --continue Eliquis Hypertension --mildly hypotensive --hold Cozaar, continue diltiazem Hypothyroidism --thyroid studies wnl --continue levothyroxine Breast cancer --stable FEN Fluids: PO intake adequate Electrolytes: replete as indicated Nutrition: low sodium DVT prophylaxis: on Eliquis Physical therapy Dispo: continues to require inpatient care. Full code. Visit type - Emergency Visit Emergency Visit: Yes ED Registration Date: 05/01/17 Care time: The patient presented to the Emergency Department on the above date and was hospitalized for further evaluation of their emergent condition. - New Patient This patient is new to me today: Yes Date on this admission: 05/03/17 - Critical Care Critical Care patient: No
[2017-05-03] MEDS: APIXABAN 5 MG TABLET PO SCH ×2 (09:24→21:57)
[2017-05-03] MEDS: CHOLECALCIFEROL (VITAMIN D3) 1,000 UNIT TABLET (FP) PO SCH (09:24)
[2017-05-03] MEDS: ESCITALOPRAM OXALATE 10 MG TABLET (FP) PO SCH (09:24)
[2017-05-03] MEDS: DULoxetine HCL 30 MG CAPSULE.DR (FP) PO SCH (09:24)
[2017-05-03] MEDS ORDERED: PT OWN MED DRAWER 7, Y5N ONE (09:25)
[2017-05-03] MEDS: LETROZOLE 2.5 MG TABLET (FP) PO SCH ×2 (09:26→10:17)
--- NOTE | 2017-05-03 10:54 | PN ---
Progress Note (short form) - Note Progress Note: CC: afib with rvr S: no sob, palps, dizziness, cp Current Medications Generic Name Dose Route Start Last Admin Trade Name Ash PRN Reason Stop Dose Admin Apixaban 5 mg 05/01/17 10:00 05/03/17 09:24 Eliquis - PO 5 mg BID DAYANA Administration Cholecalciferol 4,000 unit 05/01/17 10:00 05/03/17 09:24 Vitamin D3 - PO 4,000 unit DAILY DAYANA Administration Diltiazem HCl 5 mg 05/01/17 11:05 05/02/17 14:33 Cardizem Injection - IVPUSH 5 mg Q4H PRN Administration TACHYCARDIA Diltiazem HCl 240 mg 05/03/17 12:00 Cardizem Cd - PO 05/03/17 12:01 ONCE ONE Diltiazem HCl 240 mg 05/04/17 10:00 Cardizem Cd - PO DAILY DAYANA Duloxetine HCl 30 mg 05/01/17 10:00 05/03/17 09:24 Cymbalta - PO 30 mg DAILY DAYANA Administration Escitalopram Oxalate 10 mg 05/01/17 10:00 05/03/17 09:24 Lexapro - PO 10 mg DAILY DAYANA Administration Letrozole 2.5 mg 05/01/17 10:00 05/03/17 10:17 Femara - PO 2.5 mg DAILY DAYANA Administration Levothyroxine Sodium 125 mcg 05/01/17 07:00 05/03/17 06:16 Synthroid - PO 125 mcg DAILY@0700 DAYANA Administration Zolpidem Tartrate 5 mg 05/02/17 22:48 05/02/17 23:03 Ambien - PO 5 mg HS PRN Administration INSOMNIA Vital Signs Period Temp Pulse Resp BP Sys/Molina Pulse Ox Last 24 Hr 41 F-98.8 F 75-133 18-20 96-132/52-79 98-98 nad, calm jvd flat, neck supple trace rales, nl effort irregularly irregular, nl s1, s2 no mrg. PMI ND. + bs soft nt nd, no hsm ext without e/c/c aaox3 no jaundice, diaphoresis CBC, BMP 05/01/17 07:25 05/03/17 05:10 EKG 04/30: afib with RVR, 140 bpm. low voltages. no acute ischemic changes Tele: Afib, mostly 80s-90s cxr: no acute infiltrates or congestion. + bibasilar atelectasis. echo 04/2017: nl lv/rv size/fn. mod lae, 1+ laith. 1+ mac. mild-mod mr. 1+ tr. ASSESSMENT/PLAN 67 yo with h/o afib on eliquis, HTN, Thyroid Disease, Breast Ca (Chemo-Neulasta completed 06/02, xrt), Anxiety, Cervical Spine Fusion, lap band surgery with chronic nausea/vomiting, MONTEZ off cpap who p/w afib with rvr. Atrial fibrillation - no clear trigger. appears euvolemic. does not require further diuresis at this time. ce's neg x 3. ekg without acute ischemic changes. echo without significant abnormalities. no clear signs of infection. tsh wnl. - diltiazem has controlled her afib well in the past and also seemed to have more effect on her heart rate in the past 24 hours than lopressor. Will start diltiazem 30 mg po q6h. diltiazem 5 mg IV prn. diltiazem has caused drops in her sbp in the past, will monitor bp closely. hold cozaar to make bp room for uptitration of rate control meds. - 05/02: required prn iv dilt today. Will increase po dilt regimen to 60 mg po q6h. -05/03: will change to long acting dilt 240 qd and monitor on tele -con't ac with eliquis HTN - now runs on low end. meds as above. montez - per pmd.
--- NOTE | 2017-05-03 15:20 | PN ---
Progress Note (short form) - Note Progress Note: Resting in NAD on RA. No CP or SOB. Intake & Output 04/30/17 05/01/17 05/02/17 05/03/17 23:59 23:59 23:59 23:59 Intake Total 1250 1100 1305 10 Output Total 1000 400 Balance 1250 100 905 10 Weight 214 lb 216 lb 3.2 oz 210 lb 0.9 oz 217 lb Last Vital Signs Temp Pulse Resp BP Pulse Ox 97.8 F 132 H 18 95/55 98 05/03/17 14:04 05/03/17 14:04 05/03/17 14:04 05/03/17 14:04 05/03/17 09:00 Active Medications Apixaban (Eliquis -) 5 mg PO BID [facility] Last Admin: 05/03/17 09:24 Dose: 5 mg Cholecalciferol (Vitamin D3 -) 4,000 unit PO DAILY [facility] Last Admin: 05/03/17 09:24 Dose: 4,000 unit Diltiazem HCl (Cardizem Injection -) 5 mg IVPUSH Q4H PRN PRN Reason: TACHYCARDIA Last Admin: 05/02/17 14:33 Dose: 5 mg Diltiazem HCl (Cardizem Cd -) 240 mg PO DAILY [facility] Duloxetine HCl (Cymbalta -) 30 mg PO DAILY [facility] Last Admin: 05/03/17 09:24 Dose: 30 mg Escitalopram Oxalate (Lexapro -) 10 mg PO DAILY [facility] Last Admin: 05/03/17 09:24 Dose: 10 mg Letrozole (Femara -) 2.5 mg PO DAILY [facility] Last Admin: 05/03/17 10:17 Dose: 2.5 mg Levothyroxine Sodium (Synthroid -) 125 mcg PO DAILY@0700 [facility] Last Admin: 05/03/17 06:16 Dose: 125 mcg Zolpidem Tartrate (Ambien -) 5 mg PO HS PRN PRN Reason: INSOMNIA Last Admin: 05/02/17 23:03 Dose: 5 mg Constitutional: Yes: NAD Eyes: Yes: Conjunctiva Clear, EOM Intact HENT: Yes: Atraumatic, Normocephalic Neck: Yes: Supple, Trachea Midline Cardiovascular: Yes: AFib Respiratory: Yes: Diminished at the bases ...Clubbing: No Gastrointestinal: Yes: Normal Bowel Sounds, Soft. No: Tenderness Edema: No Labs: Laboratory Results - last 24 hr 05/03/17 05:10 Sodium 139 Potassium 3.7 Chloride 105 Carbon Dioxide 28 Anion Gap 6 L BUN 22 H Creatinine 1.1 H Random Glucose 111 H Calcium 7.2 L Magnesium 1.9 Problem List - Problems (1) Atrial fibrillation with RVR Code(s): I48.91 - UNSPECIFIED ATRIAL FIBRILLATION (2) Acute diastolic (congestive) heart failure Code(s): I50.31 - ACUTE DIASTOLIC (CONGESTIVE) HEART FAILURE (3) HTN (hypertension) Code(s): I10 - ESSENTIAL (PRIMARY) HYPERTENSION (4) Hyponatremia Code(s): E87.1 - HYPO-OSMOLALITY AND HYPONATREMIA Assessment/Plan Atrial Fibrillation with RVR Acute Diastolic Heart Failure HTN h/o Breast/Kidney Cancer Depression - titrate rate control meds BP allowing - nticoagulation with eliquis - lasix as tolerated - O2 as needed Dr Watson
[2017-05-03] MEDS: ZOLPIDEM TARTRATE 5 MG TABLET PO PRN (21:57)
[2017-05-04] MEDS: LEVOTHYROXINE NA 125 MCG TABLET (FP) PO SCH (06:27)
[2017-05-04] MEDS ORDERED: PT OWN MED DRAWER 7, Y5N ONE (09:21)
[2017-05-04] MEDS: APIXABAN 5 MG TABLET PO SCH ×2 (09:34→22:01)
[2017-05-04] MEDS: ESCITALOPRAM OXALATE 10 MG TABLET (FP) PO SCH (09:34)
[2017-05-04] MEDS: CHOLECALCIFEROL (VITAMIN D3) 1,000 UNIT TABLET (FP) PO SCH (09:34)
[2017-05-04] MEDS: DULoxetine HCL 30 MG CAPSULE.DR (FP) PO SCH (09:34)
--- NOTE | 2017-05-04 11:21 | PN ---
Progress Note (short form) - Note Progress Note: CC: afib with rvr S: no sob, palps, dizziness, cp Current Medications Generic Name Dose Route Start Last Admin Trade Name Ash PRN Reason Stop Dose Admin Apixaban 5 mg 05/01/17 10:00 05/04/17 09:34 Eliquis - PO 5 mg BID DAYANA Administration Cholecalciferol 4,000 unit 05/01/17 10:00 05/04/17 09:34 Vitamin D3 - PO 4,000 unit DAILY DAYANA Administration Diltiazem HCl 5 mg 05/01/17 11:05 05/02/17 14:33 Cardizem Injection - IVPUSH 5 mg Q4H PRN Administration TACHYCARDIA Diltiazem HCl 360 mg 05/05/17 10:00 Cardizem Cd - PO DAILY DAYANA Diltiazem HCl 120 mg 05/04/17 11:18 Cardizem Cd - PO 05/04/17 11:19 ONCE ONE Duloxetine HCl 30 mg 05/01/17 10:00 05/04/17 09:34 Cymbalta - PO 30 mg DAILY DAYANA Administration Escitalopram Oxalate 10 mg 05/01/17 10:00 05/04/17 09:34 Lexapro - PO 10 mg DAILY DAYANA Administration Letrozole 2.5 mg 05/01/17 10:00 05/03/17 10:17 Femara - PO 2.5 mg DAILY DAYANA Administration Levothyroxine Sodium 125 mcg 05/01/17 07:00 05/04/17 06:27 Synthroid - PO 125 mcg DAILY@0700 DAYANA Administration Zolpidem Tartrate 5 mg 05/02/17 22:48 05/03/17 21:57 Ambien - PO 5 mg HS PRN Administration INSOMNIA Vital Signs Period Temp Pulse Resp BP Sys/Molina Pulse Ox Last 24 Hr 97.3 F-98.0 F 121-147 16-20 95-135/55-87 97-97 nad, calm jvd flat, neck supple trace rales, nl effort irregularly irregular, nl s1, s2 no mrg. PMI ND. + bs soft nt nd, no hsm ext without e/c/c aaox3 no jaundice, diaphoresis CBC, BMP 05/01/17 07:25 05/03/17 05:10 EKG 04/30: afib with RVR, 140 bpm. low voltages. no acute ischemic changes Tele: Afib, mostly 80s-90s, rvr at times cxr: no acute infiltrates or congestion. + bibasilar atelectasis. echo 04/2017: nl lv/rv size/fn. mod lae, 1+ laith. 1+ mac. mild-mod mr. 1+ tr. ASSESSMENT/PLAN 67 yo with h/o afib on eliquis, HTN, Thyroid Disease, Breast Ca (Chemo-Neulasta completed 06/02, xrt), Anxiety, Cervical Spine Fusion, lap band surgery with chronic nausea/vomiting, MONTEZ off cpap who p/w afib with rvr. Atrial fibrillation - no clear trigger. appears euvolemic. does not require further diuresis at this time. ce's neg x 3. ekg without acute ischemic changes. echo without significant abnormalities. no clear signs of infection. tsh wnl. - diltiazem has controlled her afib well in the past and also seemed to have more effect on her heart rate in the past 24 hours than lopressor. Will start diltiazem 30 mg po q6h. diltiazem 5 mg IV prn. diltiazem has caused drops in her sbp in the past, will monitor bp closely. hold cozaar to make bp room for uptitration of rate control meds. - 05/02: required prn iv dilt today. Will increase po dilt regimen to 60 mg po q6h. -05/03: will change to long acting dilt 240 qd and monitor on tele -05/04: still with rvr at times, will increase dilt to 360 qd. if not controlling hr would consider adding bb -con't ac with eliquis HTN - now runs on low end. meds as above. montez - per pmd.
--- NOTE | 2017-05-04 11:25 | PN ---
Progress Note, Physician History of Present Illness: PULMONARY ALERT,OOB-CHAIR,FEELING BETTER,LESS DYSPNEIC. - Current Medication List Current Medications: Active Medications Apixaban (Eliquis -) 5 mg PO BID [facility] Last Admin: 05/04/17 09:34 Dose: 5 mg Cholecalciferol (Vitamin D3 -) 4,000 unit PO DAILY [facility] Last Admin: 05/04/17 09:34 Dose: 4,000 unit Diltiazem HCl (Cardizem Injection -) 5 mg IVPUSH Q4H PRN PRN Reason: TACHYCARDIA Last Admin: 05/02/17 14:33 Dose: 5 mg Diltiazem HCl (Cardizem Cd -) 360 mg PO DAILY [facility] Diltiazem HCl (Cardizem Cd -) 120 mg PO ONCE ONE Stop: 05/04/17 11:19 Duloxetine HCl (Cymbalta -) 30 mg PO DAILY [facility] Last Admin: 05/04/17 09:34 Dose: 30 mg Escitalopram Oxalate (Lexapro -) 10 mg PO DAILY [facility] Last Admin: 05/04/17 09:34 Dose: 10 mg Letrozole (Femara -) 2.5 mg PO DAILY [facility] Last Admin: 05/03/17 10:17 Dose: 2.5 mg Levothyroxine Sodium (Synthroid -) 125 mcg PO DAILY@0700 [facility] Last Admin: 05/04/17 06:27 Dose: 125 mcg Zolpidem Tartrate (Ambien -) 5 mg PO HS PRN PRN Reason: INSOMNIA Last Admin: 05/03/17 21:57 Dose: 5 mg - Objective Vital Signs: Vital Signs Temperature 97.3 F L 05/04/17 07:35 Pulse Rate 126 H 05/04/17 07:35 Respiratory Rate 16 05/04/17 07:37 Blood Pressure 124/80 05/04/17 07:35 O2 Sat by Pulse Oximetry (%) 97 05/04/17 07:37 Constitutional: Yes: Well Nourished, Calm Eyes: Yes: WNL HENT: Yes: WNL Neck: Yes: WNL Cardiovascular: Yes: Tachycardia, Pulse Irregular, S1, S2 Respiratory: Yes: Rales (BIBASILAR RALES) Gastrointestinal: Yes: Normal Bowel Sounds, Soft Extremities: Yes: WNL Edema: No Labs: CBC, BMP 05/01/17 07:25 05/03/17 05:10 INR, PTT INR 1.40 (0.82-1.09) H 05/02/17 08:30 Assessment/Plan Problem List - Problems (1) Atrial fibrillation with RVR Code(s): I48.91 - UNSPECIFIED ATRIAL FIBRILLATION (2) Acute diastolic (congestive) heart failure Code(s): I50.31 - ACUTE DIASTOLIC (CONGESTIVE) HEART FAILURE (3) HTN (hypertension) Code(s): I10 - ESSENTIAL (PRIMARY) HYPERTENSION (4) Hyponatremia Code(s): E87.1 - HYPO-OSMOLALITY AND HYPONATREMIA Assessment/Plan Atrial Fibrillation with RVR Acute Diastolic Heart Failure HTN h/o Breast/Kidney Cancer Depression - titrate rate control - eliquis - lasix - O2 as needed to keep SpO2 >90% DR BEAVERS
[2017-05-04] MEDS: LETROZOLE 2.5 MG TABLET (FP) PO SCH (11:35)
--- NOTE | 2017-05-04 13:51 | PN ---
Physical Exam: SUBJECTIVE: Patient seen and examined sitting on edge of bed. Feels well, has no symptoms. Wants to go dancing. OBJECTIVE: Vital Signs Period Temp Pulse Resp BP Sys/Molina Pulse Ox Last 24 Hr 97.3 F-98.0 F 121-147 16-20 95-135/55-87 97-97 Neuro: A&Ox3, in no distress CV: Irregular S1, S2 Lungs: CTA Abdomen: soft, not tender, not distended Ext: 2+ pulses, warm, well-perfused, no significant edema Skin: warm, dry, normal turgor Active Medications Generic Name Dose Route Start Last Admin Trade Name Freq PRN Reason Stop Dose Admin Apixaban 5 mg 05/01/17 10:00 05/04/17 09:34 Eliquis - PO 5 mg BID DAYANA Administration Cholecalciferol 4,000 unit 05/01/17 10:00 05/04/17 09:34 Vitamin D3 - PO 4,000 unit DAILY DAYANA Administration Diltiazem HCl 5 mg 05/01/17 11:05 05/02/17 14:33 Cardizem Injection - IVPUSH 5 mg Q4H PRN Administration TACHYCARDIA Diltiazem HCl 360 mg 05/05/17 10:00 Cardizem Cd - PO DAILY DAYANA Duloxetine HCl 30 mg 05/01/17 10:00 05/04/17 09:34 Cymbalta - PO 30 mg DAILY DAYANA Administration Escitalopram Oxalate 10 mg 05/01/17 10:00 05/04/17 09:34 Lexapro - PO 10 mg DAILY DAYANA Administration Letrozole 2.5 mg 05/01/17 10:00 05/04/17 11:35 Femara - PO 2.5 mg DAILY DAYANA Administration Levothyroxine Sodium 125 mcg 05/01/17 07:00 05/04/17 06:27 Synthroid - PO 125 mcg DAILY@0700 DAYANA Administration Zolpidem Tartrate 5 mg 05/02/17 22:48 05/03/17 21:57 Ambien - PO 5 mg HS PRN Administration INSOMNIA EC/26: afib with RVR, 140 bpm. low voltages. no acute ischemic changes Echo 04/2017: nl lv/rv size/fn. mod lae, 1+ laith. 1+ mac. mild-mod mr. 1+ tr. ASSESSMENT/PLAN 67 year-old female with a PMH significant for HTN, atrial fibrillation on Eliquis, hypothyroidism, and breast cancer. Admitted for afib with RVR. Afib with RVR --rate to 160s overnight on tele --increase long acting diltiazem 360mg --add beta ina if needed --continue Eliquis Hypertension --mildly hypotensive --hold Cozaar, continue diltiazem Hypothyroidism --thyroid studies wnl --continue levothyroxine Breast cancer --stable FEN Fluids: PO intake adequate Electrolytes: replete as indicated Nutrition: low sodium DVT prophylaxis: on Eliquis Physical therapy Dispo: continues to require inpatient care. Full code. Visit type - Emergency Visit Emergency Visit: Yes ED Registration Date: 05/01/17 Care time: The patient presented to the Emergency Department on the above date and was hospitalized for further evaluation of their emergent condition. - New Patient This patient is new to me today: No - Critical Care Critical Care patient: No
[2017-05-04] MEDS: metoPROLOL SUCCINATE 25 MG TAB.SR.24H (FP) PO SCH (22:01)
[2017-05-04] MEDS: ZOLPIDEM TARTRATE 5 MG TABLET PO PRN (22:01)
[2017-05-05] MEDS: LEVOTHYROXINE NA 125 MCG TABLET (FP) PO SCH (06:27)
[2017-05-05] MEDS: CHOLECALCIFEROL (VITAMIN D3) 1,000 UNIT TABLET (FP) PO SCH (09:33)
[2017-05-05] MEDS: DULoxetine HCL 30 MG CAPSULE.DR (FP) PO SCH (09:34)
[2017-05-05] MEDS: APIXABAN 5 MG TABLET PO SCH (09:34)
[2017-05-05] MEDS: ESCITALOPRAM OXALATE 10 MG TABLET (FP) PO SCH (09:34)
[2017-05-05] MEDS: metoPROLOL SUCCINATE 25 MG TAB.SR.24H (FP) PO SCH (09:34)
--- NOTE | 2017-05-05 11:19 | PN ---
Physical Exam: SUBJECTIVE: Patient seen and examined. No complaints no sob no chest pain, denies palpitations OBJECTIVE: Vital Signs Period Temp Pulse Resp BP Sys/Molina Pulse Ox Last 24 Hr 97.6 F-98.8 F 101-137 19-20 94-125/58-80 96-96 PE Neuro: alert, awake, cn 2-12intact Pulm: clear anteriorly CV: s1 s2 irregular rate uncontrolled Abd: s nt nd + bs Ext: warm trace le edema Active Medications Generic Name Dose Route Start Last Admin Trade Name Freq PRN Reason Stop Dose Admin Apixaban 5 mg 05/01/17 10:00 05/05/17 09:34 Eliquis - PO 5 mg BID DAYANA Administration Cholecalciferol 4,000 unit 05/01/17 10:00 05/05/17 09:33 Vitamin D3 - PO 4,000 unit DAILY DAYANA Administration Diltiazem HCl 5 mg 05/01/17 11:05 05/02/17 14:33 Cardizem Injection - IVPUSH 5 mg Q4H PRN Administration TACHYCARDIA Diltiazem HCl 360 mg 05/05/17 10:00 05/05/17 09:34 Cardizem Cd - PO 360 mg DAILY DAYANA Administration Duloxetine HCl 30 mg 05/01/17 10:00 05/05/17 09:34 Cymbalta - PO 30 mg DAILY DAYANA Administration Escitalopram Oxalate 10 mg 05/01/17 10:00 05/05/17 09:34 Lexapro - PO 10 mg DAILY DAYANA Administration Letrozole 2.5 mg 05/01/17 10:00 05/04/17 11:35 Femara - PO 2.5 mg DAILY DAYANA Administration Levothyroxine Sodium 125 mcg 05/01/17 07:00 05/05/17 06:27 Synthroid - PO 125 mcg DAILY@0700 DAYANA Administration Metoprolol Succinate 25 mg 05/04/17 22:00 05/05/17 09:34 Toprol Xl - PO 25 mg BID DAYANA Administration Zolpidem Tartrate 5 mg 05/02/17 22:48 05/04/17 22:01 Ambien - PO 5 mg HS PRN Administration INSOMNIA Imaging: ECHO 04/2017: nl lv/rv size/fn. mod lae, 1+ laith. 1+ mac. mild-mod mr. 1+ tr. Assessment: 67 year old female with a PMH significant for HTN, atrial fibrillation on Eliquis, hypothyroidism, and breast cancer. Admitted for afib with RVR. Plan: 1. Afib with RVR - Rate uncontrolled at rest - Continue cardizem CD 360mg - Continue toprol xl 25mg daily - May need cardioversion? will d/w cardiology - Continue Eliquis 2. Hypotension - Hold cozaar - Continue dilt 3. Hypothyroidism - Continue levothyroxine 125mcg - TSH wnl 4. Breast cancer - Stable 5. DVT ppx - Eliquis 6. Depression - Cont meds Visit type - Emergency Visit Emergency Visit: Yes ED Registration Date: 05/01/17 Care time: The patient presented to the Emergency Department on the above date and was hospitalized for further evaluation of their emergent condition. - New Patient This patient is new to me today: Yes Date on this admission: 05/05/17 - Critical Care Critical Care patient: No
[2017-05-05 12:03] VITALS: TEMP 98.3
--- NOTE | 2017-05-05 14:32 | PN ---
Progress Note (short form) - Note Progress Note: PULMONARY Denies shortness of breath, chest pain or palpitations. Wants to go home. Last Vital Signs Temp Pulse Resp BP Pulse Ox 98.3 F 133 H 20 118/66 96 05/05/17 10:00 05/05/17 10:00 05/05/17 10:00 05/05/17 10:00 05/05/17 09:00 Intake & Output 05/02/17 05/03/17 05/04/17 05/05/17 23:59 23:59 23:59 23:59 Intake Total 1305 430 20 510 Output Total 400 Balance 905 430 20 510 Weight 95.28 kg 98.43 kg 96.388 kg 96.162 kg Gen: NAD at rest Heart: irregular Lung: decreased breath sounds at the bases Abd: soft, nontender Ext: no edema CBC, BMP 05/01/17 07:25 05/03/17 05:10 Active Medications Apixaban (Eliquis -) 5 mg PO BID [facility] Last Admin: 05/05/17 09:34 Dose: 5 mg Cholecalciferol (Vitamin D3 -) 4,000 unit PO DAILY [facility] Last Admin: 05/05/17 09:33 Dose: 4,000 unit Diltiazem HCl (Cardizem Injection -) 5 mg IVPUSH Q4H PRN PRN Reason: TACHYCARDIA Last Admin: 05/02/17 14:33 Dose: 5 mg Diltiazem HCl (Cardizem Cd -) 360 mg PO DAILY [facility] Last Admin: 05/05/17 09:34 Dose: 360 mg Duloxetine HCl (Cymbalta -) 30 mg PO DAILY [facility] Last Admin: 05/05/17 09:34 Dose: 30 mg Escitalopram Oxalate (Lexapro -) 10 mg PO DAILY [facility] Last Admin: 05/05/17 09:34 Dose: 10 mg Letrozole (Femara -) 2.5 mg PO DAILY [facility] Last Admin: 05/04/17 11:35 Dose: 2.5 mg Levothyroxine Sodium (Synthroid -) 125 mcg PO DAILY@0700 [facility] Last Admin: 05/05/17 06:27 Dose: 125 mcg Metoprolol Succinate (Toprol Xl -) 25 mg PO BID [facility] Last Admin: 05/05/17 09:34 Dose: 25 mg Zolpidem Tartrate (Ambien -) 5 mg PO HS PRN PRN Reason: INSOMNIA Last Admin: 05/04/17 22:01 Dose: 5 mg A/P Atrial Fibrillation with RVR Acute Diastolic Heart Failure improved HTN h/o Breast/Kidney Cancer Depression - titrate rate control - continue anticoagulation with eliquis - O2 as needed to keep SpO2 >90% - cardiology f/u, can d/c home from pulmonary standpoint Problem List - Problems (1) Atrial fibrillation with RVR Code(s): I48.91 - UNSPECIFIED ATRIAL FIBRILLATION (2) Acute diastolic (congestive) heart failure Code(s): I50.31 - ACUTE DIASTOLIC (CONGESTIVE) HEART FAILURE (3) HTN (hypertension) Code(s): I10 - ESSENTIAL (PRIMARY) HYPERTENSION (4) Hyponatremia Code(s): E87.1 - HYPO-OSMOLALITY AND HYPONATREMIA
[2017-05-05 14:45] VITALS: BP 107/63; PULSE 119
--- NOTE | 2017-05-05 15:02 | PN ---
Progress Note (short form) - Note Progress Note: CC: afib with rvr S: no sob, palps, dizziness, cp. diltiazem increased to 360 mg daily yesterday (1st dose this am) and toprol 25 bid initiated. This afternoon HR's trended down from 100s-110s to 80s. Current Medications Apixaban (Eliquis -) 5 mg PO BID [facility] Last Admin: 05/05/17 09:34 Dose: 5 mg Cholecalciferol (Vitamin D3 -) 4,000 unit PO DAILY [facility] Last Admin: 05/05/17 09:33 Dose: 4,000 unit Diltiazem HCl (Cardizem Injection -) 5 mg IVPUSH Q4H PRN PRN Reason: TACHYCARDIA Last Admin: 05/02/17 14:33 Dose: 5 mg Diltiazem HCl (Cardizem Cd -) 360 mg PO DAILY [facility] Last Admin: 05/05/17 09:34 Dose: 360 mg Duloxetine HCl (Cymbalta -) 30 mg PO DAILY [facility] Last Admin: 05/05/17 09:34 Dose: 30 mg Escitalopram Oxalate (Lexapro -) 10 mg PO DAILY [facility] Last Admin: 05/05/17 09:34 Dose: 10 mg Letrozole (Femara -) 2.5 mg PO DAILY [facility] Last Admin: 05/04/17 11:35 Dose: 2.5 mg Levothyroxine Sodium (Synthroid -) 125 mcg PO DAILY@0700 [facility] Last Admin: 05/05/17 06:27 Dose: 125 mcg Metoprolol Succinate (Toprol Xl -) 25 mg PO BID [facility] Last Admin: 05/05/17 09:34 Dose: 25 mg Zolpidem Tartrate (Ambien -) 5 mg PO HS PRN PRN Reason: INSOMNIA Last Admin: 05/04/17 22:01 Dose: 5 mg Vital Signs - 24 hr 05/04/17 05/04/17 05/04/17 18:00 20:00 21:00 Temperature 97.6 F 98.8 F Pulse Rate 125 H 101 H Respiratory 19 20 Rate Blood Pressure 125/80 122/78 O2 Sat by Pulse 96 Oximetry (%) 05/04/17 05/05/17 05/05/17 22:00 02:00 06:00 Temperature 97.9 F 97.8 F Pulse Rate 130 H 104 H Respiratory 19 20 Rate Blood Pressure 115/58 94/66 O2 Sat by Pulse 96 Oximetry (%) 05/05/17 05/05/17 05/05/17 09:00 10:00 14:44 Temperature 98.3 F 98.3 F Pulse Rate 133 H 119 H Respiratory 20 20 20 Rate Blood Pressure 118/66 107/63 O2 Sat by Pulse 96 Oximetry (%) Intake & Output 05/03/17 05/04/17 05/05/17 05/06/17 07:59 07:59 07:59 07:59 Intake Total 1305 440 20 500 Output Total 400 Balance 905 440 20 500 Weight 217 lb 212 lb nad, calm jvd flat, neck supple trace rales, nl effort irregularly irregular, nl s1, s2 no mrg. PMI ND. + bs soft nt nd, no hsm ext without e/c/c aaox3 no jaundice, diaphoresis CBC, BMP 05/01/17 07:25 05/03/17 05:10 EKG 04/30: afib with RVR, 140 bpm. low voltages. no acute ischemic changes Tele: Afib, This afternoon HR's trended down from 100s-110s to 80s. cxr: no acute infiltrates or congestion. + bibasilar atelectasis. echo 04/2017: nl lv/rv size/fn. mod lae, 1+ laith. 1+ mac. mild-mod mr. 1+ tr. ASSESSMENT/PLAN 67 yo with h/o afib on eliquis, HTN, Thyroid Disease, Breast Ca (Chemo-Neulasta completed 06/02, xrt), Anxiety, Cervical Spine Fusion, lap band surgery with chronic nausea/vomiting, MONTEZ off cpap who p/w afib with rvr. Atrial fibrillation - no clear trigger. appears euvolemic. does not require further diuresis at this time. ce's neg x 3. ekg without acute ischemic changes. echo without significant abnormalities. no clear signs of infection. tsh wnl. - diltiazem has controlled her afib well in the past and also seemed to have more effect on her heart rate in the past 24 hours than lopressor. Will start diltiazem 30 mg po q6h. diltiazem 5 mg IV prn. diltiazem has caused drops in her sbp in the past, will monitor bp closely. hold cozaar to make bp room for uptitration of rate control meds. - 05/02: required prn iv dilt today. Will increase po dilt regimen to 60 mg po q6h. -05/03: will change to long acting dilt 240 qd and monitor on tele -05/04: still with rvr at times, will increase dilt to 360 qd. toprol 25 bid also added. - 05/05: HR's trending down over the course of the day. this afternoon controlled in the 80s. stable bp's. -con't ac with eliquis HTN - now runs on low end. meds as above. montez - per pmd. ok for d/c from CV perspective with outpatient follow up.
--- NOTE | 2017-05-05 15:28 | DS ---
Physical Exam: SUBJECTIVE: Patient seen and examined OBJECTIVE: Vital Signs Period Temp Pulse Resp BP Sys/Molina Pulse Ox Last 24 Hr 97.6 F-98.8 F 101-133 19-20 94-125/58-80 96-96 PHYSICAL EXAM GENERAL: The patient is awake, alert, and fully oriented, in no acute distress. HEAD: Normal with no signs of trauma. EYES: PERRL, extraocular movements intact, sclera anicteric, conjunctiva clear. ENT: Ears normal, nares patent, oropharynx clear without exudates, moist mucous membranes. NECK: Trachea midline, full range of motion, supple. LUNGS: Breath sounds equal, clear to auscultation bilaterally, no wheezes, no crackles, no accessory muscle use. HEART: Regular rate and rhythm, S1, S2 without murmur, rub or gallop. ABDOMEN: Soft, nontender, nondistended, normoactive bowel sounds, no guarding, no rebound, no hepatosplenomegaly, no masses. EXTREMITIES: 2+ pulses, warm, well-perfused, no edema. NEUROLOGICAL: Cranial nerves II through XII grossly intact. Normal speech, gait not observed. PSYCH: Normal mood, normal affect. SKIN: Warm, dry, normal turgor, no rashes or lesions noted. LABS HOSPITAL COURSE: Date of Admission:05/01/17 Date of Discharge: 05/05/17 Discharge Summary Reason For Visit: AFIB WITH RVR Current Active Problems Acute diastolic (congestive) heart failure (Acute) Atrial fibrillation with RVR (Acute) Hyponatremia (Acute) Condition: Stable - Instructions Diet, Activity, Other Instructions: Please return to the ED for any new, persistent, or worsening symptoms. Follow up with your PCP in 1 week Take new medications as directed Only take medication as listed on home med list (stopped cozaar and 50mg toprol xl in AM) Follow up with the medical device in 1 week Referrals: Humphrey Curtis MD [Primary Care Provider] - August Guevara MD [Staff Physician] - Disposition: HOME - Home Medications Comprehensive Discharge Medication List: Ambulatory Orders Zolpidem Tartrate [Ambien] 10 mg PO HS 05/09/12 Cholecalciferol (Vitamin D3) [Vitamin D3] 4,000 unit PO DAILY capsule 05/06/13 Apixaban [Eliquis] 5 mg PO BID 04/30/17 Duloxetine HCl [Cymbalta] 30 mg PO DAILY 04/30/17 Escitalopram Oxalate [Lexapro -] 10 mg PO DAILY 04/30/17 Letrozole [Femara] 2.5 mg PO DAILY 04/30/17 Diltiazem Cd [Cardizem Cd -] 360 mg PO DAILY #60 cap.cd.24h 05/05/17 Metoprolol Succinate [Toprol XL -] 25 mg PO BID #60 tab.sr.24h 05/05/17 - Discharge Referral Referred to [facility] No
== END 2017-05-05 18:05 | disposition home or self-care (01) | DRG 308 ==
LOC: FER 17:00 → FM/S 05-01 00:43 → J4W 05-02 20:20
PROVIDERS: ADMIT Internal Medicine; ATTEND Nurse Practitioner Acute Care
DX: I48.91 Unspecified atrial fibrillation (principal); I50.31 Acute diastolic (congestive) heart failure; E87.1 Hypo-osmolality and hyponatremia; J98.11 Atelectasis; E03.9 Hypothyroidism, unspecified; I11.0 Hypertensive heart disease with heart failure; F32.9 Major depressive disorder, single episode, unspecified; I95.9 Hypotension, unspecified; C50.919 Malignant neoplasm of unspecified site of unspecified female breast
CPT/HCPCS: 36415; 71045-TC-FY; 80048; 80053; 82550; 83735; 83880; 84100; 84439; 84443; 84481; 84484; 85025; 85610; 85730; 93005; 93306-TC; 97116-GP; 97161-GP; 99285-25

== ENCOUNTER 2020-10-20 08:10 | Day surgery (SDC) | payer OTHER, BC ==
[2020-10-14 16:46] VITALS: BMI 28.6
[2020-10-20 08:41] VITALS: PULSE 67; TEMP 97.8
[2020-10-20] MEDS ORDERED: PHENYLEPHRINE 2.5% OPHTH SOLN 15 ML BOTTLE OD ONE ×3 (08:50→09:00)
[2020-10-20] MEDS ORDERED: TROPICAMIDE 1% OPHTH SOLN 15 ML BOTTLE OD ONE ×3 (08:50→09:00)
[2020-10-20] MEDS ORDERED: CYCLOPENTOLATE 2% OPHTH SOLN 2 ML BOTTLE OD ONE ×3 (08:50→09:00)
[2020-10-20] MEDS ORDERED: CIPROFLOXACIN 0.3% EYE DROPS 5 ML BOTTLE OD ONE ×3 (08:50→09:00)
[2020-10-20] MEDS ORDERED: CYCLOPENTOLATE 2% OPHTH SOLN 2 ML BOTTLE ONE (08:51)
[2020-10-20] MEDS ORDERED: CIPROFLOXACIN 0.3% EYE DROPS 5 ML BOTTLE ONE (08:51)
[2020-10-20] MEDS ORDERED: PHENYLEPHRINE 2.5% OPHTH SOLN 15 ML BOTTLE ONE (08:51)
[2020-10-20] MEDS ORDERED: TROPICAMIDE 1% OPHTH SOLN 15 ML BOTTLE ONE (08:51)
[2020-10-20] MEDS ORDERED: TETRACAINE 0.5% OPHTH SOLN 2 ML BOTTLE ONE (09:07)
[2020-10-20] MEDS ORDERED: NEO/POLYMYX B SULF/DEXAMETH OPHTHALMIC 5ML BOTTLE ONE (09:07)
[2020-10-20] MEDS ORDERED: CARBACHOL 0.01% INTRA-OCULAR 1.5 ML VIAL ONE (09:07)
[2020-10-20] MEDS ORDERED: BSS (NA/CA/MG/K) BALANCED SALT SOLUTION OPHTH SOLN 15 ML BOTTLE ONE (09:07)
[2020-10-20] MEDS ORDERED: LIDOCAINE 1% P/F 10 MG/ML VIAL ONE (09:07)
[2020-10-20] MEDS ORDERED: MIDAZOLAM HCL 2 MG/2 ML SINGLE DOSE VIAL ONE (10:03)
[2020-10-20 11:00] VITALS: BP 110/65
== END 2020-10-20 10:55 | disposition home or self-care (01) ==
LOC: FASU 08:10
PROVIDERS: ATTEND Ophthalmology
PROC: 08RJ3JZ Replacement of Right Lens with Synthetic Substitute, Percutaneous Approach (ICD-10-PCS; principal; 2020-10-20 10:07)
DX: H26.8 Other specified cataract (principal)

== ENCOUNTER 2020-11-17 06:50 | Day surgery (SDC) | payer OTHER, BC ==
[2020-11-12 13:48] VITALS: BMI 28.6
[2020-11-17] MEDS: TROPICAMIDE 1% OPHTH SOLN 15 ML BOTTLE ONE ×3 (07:45→07:55)
[2020-11-17] MEDS: CIPROFLOXACIN 0.3% EYE DROPS 5 ML BOTTLE ONE ×3 (07:45→07:55)
[2020-11-17] MEDS: CYCLOPENTOLATE 2% OPHTH SOLN 2 ML BOTTLE ONE ×3 (07:45→07:55)
[2020-11-17] MEDS: PHENYLEPHRINE 2.5% OPHTH SOLN 15 ML BOTTLE ONE ×3 (07:45→07:55)
[2020-11-17] MEDS ORDERED: EPINEPHrine/PF 1 MG/1 ML (1:1,000) AMPULE ONE (07:48)
[2020-11-17] MEDS ORDERED: MIDAZOLAM HCL 2 MG/2 ML SINGLE DOSE VIAL ONE (08:29)
[2020-11-17] MEDS ORDERED: BSS (NA/CA/MG/K) BALANCED SALT SOLUTION OPHTH SOLN 15 ML BOTTLE ONE (08:38)
[2020-11-17] MEDS ORDERED: TETRACAINE 0.5% OPHTH SOLN 2 ML BOTTLE ONE (08:38)
[2020-11-17] MEDS ORDERED: LIDOCAINE 1% P/F 10 MG/ML VIAL ONE (08:38)
[2020-11-17] MEDS ORDERED: NEO/POLYMYX B SULF/DEXAMETH OPHTHALMIC 5ML BOTTLE ONE (08:39)
[2020-11-17] MEDS ORDERED: CARBACHOL 0.01% INTRA-OCULAR 1.5 ML VIAL ONE (08:39)
[2020-11-17 09:53] VITALS: BP 114/67; PULSE 65; TEMP 97.8
== END 2020-11-17 10:00 | disposition home or self-care (01) ==
LOC: FASU 06:50
PROVIDERS: ATTEND Ophthalmology
PROC: 08RK3JZ Replacement of Left Lens with Synthetic Substitute, Percutaneous Approach (ICD-10-PCS; principal; 2020-11-17 09:00)
DX: H26.8 Other specified cataract (principal)